=== PATIENT | female | born 1990 | race Caucasian/White ===

== ENCOUNTER 2016-06-04 08:13 | Inpatient (IN) | payer BC ==
[2016-06-04] VITALS (12 sets, daily range): BP systolic 111–128; RESP 16–20; TEMP 97.9–98.5; Ht 157.5 cm; Wt 80.7 kg
[~2016-06-04] VITALS: Ht 157.5 cm; Wt 80.7 kg
[~2016-06-04 08:13] MED LIST: OXYTOCIN 10 UNITS/ML VIAL IV ONE
[2016-06-04] MEDS ORDERED: FAMOTIDINE 20 MG INJ IV ONE (08:35)
[2016-06-04] MEDS ORDERED: METOCLOPRAMIDE 10 MG/2 ML VIAL IV PUSH ONE (08:35)
[2016-06-04] MEDS ORDERED: LACT RINGERS 1,000 ML IV SCH ×2 (08:35→11:55)
[2016-06-04] MEDS ORDERED: MISOPROSTOL 200 MCG TAB RECTAL PRN (08:35)
[2016-06-04] MEDS ORDERED: LIDOCAINE 1% BUFFERED 1 ML SYR INTRADERM PRN (08:35)
[2016-06-04] MEDS ORDERED: METHYLERGONOVINE MAL 0.2 MG/ML AMP IM PRN (08:35)
[2016-06-04] MEDS ORDERED: CEFAZOLIN (LD/OB) 100 ML IV ONE (08:35)
[2016-06-04] MEDS ORDERED: NALOXONE 0.4 MG/ML AMP IV PRN (11:10)
[2016-06-04] MEDS ORDERED: PROMETHAZINE 25 MG/ML VIAL IV PRN (11:10)
[2016-06-04] MEDS ORDERED: MEPERIDINE 25 MG/ML IV PRN (11:10)
[2016-06-04] MEDS ORDERED: DILAUDID 1 MG/ML AMP IV PRN (11:10)
[2016-06-04] MEDS ORDERED: MORPHINE 4 MG/ML SYR IV PRN ×2 (11:10)
[2016-06-04] MEDS ORDERED: SALINE FLUSH 10 ML FLUSH PRN (11:10)
[2016-06-04] MEDS ORDERED: ONDANSETRON 4 MG VIAL IV PRN ×3 (11:10→11:55)
[2016-06-04] MEDS ORDERED: BUTORPHANOL 1 MG/ML VIAL IV PRN (11:10)
[2016-06-04] MEDS ORDERED: MORPHINE 2 MG/ML SYR IV PRN ×2 (11:10)
[2016-06-04] MEDS ORDERED: DIPHENHYDRAMINE 50 MG/ML VIAL IV PRN (11:10)
[2016-06-04] MEDS ORDERED: OXYCODONE 5 MG TAB PO PRN (11:10)
[2016-06-04] MEDS ORDERED: MEASLES,MUMPS,RUBELLA VAC SUBQ.VACC ONE (11:55)
[2016-06-04] MEDS ORDERED: TDaP 0.5 ML VIAL IM.VACC ONE (11:55)
[2016-06-04] MEDS ORDERED: MAG HYDROX 30 ML UDC PO PRN (11:55)
[2016-06-04] MEDS ORDERED: OXYCODONE/APAP 5/325 TAB PO PRN (11:55)
[2016-06-04] MEDS: KETOROLAC 30 MG/ML VIAL IV SCH ×2 (12:26→17:54)
[2016-06-04] MEDS: OXYTOCIN 15 UNITS/250 ML NS 250 ML IV SCH ×2 (13:16→14:34)
[2016-06-04] MEDS ORDERED: MISOPROSTOL 200 MCG TAB PO ONE (14:10)
[2016-06-04] MEDS ORDERED: MISOPROSTOL 100 MCG TAB RECTAL ONE (14:10)
[2016-06-04] MEDS: SALINE FLUSH 10 ML FLUSH SCH (19:29)
[2016-06-04] MEDS ORDERED: MISOPROSTOL 100 MCG TAB PO ONE (20:00)
[2016-06-05] MEDS: KETOROLAC 30 MG/ML VIAL IV SCH ×2 (00:10→06:23)
[2016-06-05] MEDS ORDERED: SODIUM CHLORIDE 0.9% FLUSH BAG 500 ML IV SCH (06:00)
[2016-06-05] MEDS: SALINE FLUSH 10 ML FLUSH SCH (07:48)
[2016-06-05] MEDS: DOCUSATE SOD 100 MG CAP PO SCH (08:37)
[2016-06-05] MEDS ORDERED: LEVOTHYROXINE 0.075 MG TAB PO ONE (09:00)
[2016-06-05 09:20] VITALS: BP_SYST 114; RESP 18; TEMP 98.3
[2016-06-05] MEDS: OXYCODONE/APAP 5/325 TAB PO PRN ×3 (10:21→22:40)
[2016-06-05] MEDS: Ibuprofen 800 MG TAB PO SCH ×2 (11:48→20:51)
[2016-06-05 13:29] VITALS: BP_SYST 104; RESP 18; TEMP 98
[2016-06-05 17:52] VITALS: BP_SYST 114; TEMP 98.1
[2016-06-05 17:53] VITALS: RESP 20
[2016-06-06] MEDS: Ibuprofen 800 MG TAB PO SCH ×2 (05:01→11:47)
[2016-06-06 05:30] VITALS: BP_SYST 116; RESP 16; TEMP 97.9
[2016-06-06] MEDS ORDERED: MISSING DOSE XX ONE (05:35)
[2016-06-06] MEDS: SALINE FLUSH 10 ML FLUSH SCH (07:34)
[2016-06-06 08:29] VITALS: BP_SYST 116; RESP 16; TEMP 97.9
[2016-06-06] MEDS: DOCUSATE SOD 100 MG CAP PO SCH (08:51)
[2016-06-06] MEDS ORDERED: LEVOTHYROXINE 0.15 MG TAB PO ONE (09:00)
[2016-06-06] MEDS: OXYCODONE/APAP 5/325 TAB PO PRN (12:26)
[2016-06-06 13:22] VITALS: BP_SYST 115; RESP 16; TEMP 98
[2016-06-07] MEDS ORDERED: LEVOTHYROXINE 0.075 MG TAB PO ONE (09:00)
== END 2016-06-06 14:01 | disposition home or self-care (01) | DRG 766 ==
LOC: LD 08:13 → OB 14:38
PROVIDERS: ADMIT Obstetrics & Gynecology; ATTEND Obstetrics & Gynecology
PROC: 10D00Z1 Extraction of Products of Conception, Low, Open Approach (ICD-10-PCS; principal; 2016-06-04)
DX: O99.344 Other mental disorders complicating childbirth (principal); E03.9 Hypothyroidism, unspecified; O34.211 Maternal care for low transverse scar from previous cesarean delivery; N85.8 Other specified noninflammatory disorders of uterus; F41.9 Anxiety disorder, unspecified; O99.284 Endocrine, nutritional and metabolic diseases complicating childbirth; O75.82 Onset (spontaneous) of labor after 37 completed weeks of gestation but before 39 completed weeks gestation, with delivery by (planned) cesarean section; Z3A.39 39 weeks gestation of pregnancy; Z37.0 Single live birth; O32.1XX0 Maternal care for breech presentation, not applicable or unspecified
CPT/HCPCS: 82803; 85025; 86850; 86900; 86901